=== PATIENT | female | born 1985 | race Caucasian/White ===

== ENCOUNTER → 2019-11-29 | Outpatient (CLI) | payer MEDICAID, SELFPAY | PROVIDERS: Family Provider Family Medicine; Visit Provider Family Medicine | DX: O24.410 Gestational diabetes mellitus in pregnancy, diet controlled (principal); O36.63X0 Maternal care for excessive fetal growth, third trimester, not applicable or unspecified; Z3A.39 39 weeks gestation of pregnancy | CPT/HCPCS: 76815 ==

== ENCOUNTER 2019-12-01 01:39 | Outpatient (CLI) | payer MEDICAID, SELFPAY ==
[2019-12-01 01:40] VITALS: BMI 53.0
[2019-12-01 02:15] VITALS: BP 158/90; PULSE 92; RESP 20; TEMP 36.8
[2019-12-01 03:00] VITALS: BP 146/90; PULSE 90; RESP 18; TEMP 36.7
== END 2019-12-01 03:07 | disposition home or self-care (01) ==
LOC: OPOB 02:09 → OBGYN 03:00 → OPOB 12-11 14:08
PROVIDERS: Family Provider Family Medicine; PCP Family Medicine; Visit Provider Family Medicine
DX: O26.899 Other specified pregnancy related conditions, unspecified trimester (principal); Z3A.00 Weeks of gestation of pregnancy not specified; R10.9 Unspecified abdominal pain
CPT/HCPCS: 59025; 99211

== ENCOUNTER 2019-12-02 12:48 | Inpatient (IN) | payer MEDICAID, SELFPAY ==
[2019-12-02] VITALS (8 sets, daily range): BP systolic 148–170; BP diastolic 73–80; PULSE 63; RESP 18–20; TEMP 36.5–37.1; BMI 53.5
--- NOTE | 2019-12-02 13:06 | US_ITS ---
WS: [id number] ULTRASOUND OB LIMITED TECHNIQUE: Limited ultrasound examination of the fetus. CLINICAL INFORMATION: Gest HTN COMPARISON: FINDINGS: Suboptimal examination due to body habitus Single interuterine gestation. presentation is vertex Placental location is anterior. Placenta grade: 1 heart rate 157 BPM. Normal OANH 4.7 cm Gestational age 37 weeks 3 days. Estimated delivery December 20, 2019 Biophysical profile 8 out of 8. breathin movement: 2 tone: 2 Amniotic fluid: 2 IMPRESSION Normal biophysical profile 8 out of [address] Villalta by technologist at time of exam
[2019-12-02] MEDS: miSOPROStol 100 mcg tablet 25 MCG VAGINAL (15:13)
[2019-12-02 16:12] LABS: Basophils % 0.3 %; Eosinophils % 0.3 %; Hematocrit 35.2 % (37.0-47.0); Hemoglobin 10.9 g/dL (11.5-15.3); Lymphocytes # 1.6 10^3/uL (0.8-4.8); Lymphocytes % 21.1 %; Mean Corpuscular Hemoglobin 27.3 pg (28.0-34.0); Mean Platelet Volume 12.1 fL (7.4-10.4); Monocytes # 0.4 10^3/uL (0.2-0.9); Monocytes % 5.5 %; Neutrophils # 5.6 10^3/uL (1.8-7.7); Neutrophils % 72.3 %; Nucleated Red Blood Cells % 0 %; Platelet Count 221 10^3/cmm (130-400); Red Cell Distribution Width 13.2 % (12.1-15.1); White Blood Count 7.7 10^3/uL (4.0-10.0)
[2019-12-02] MEDS: oxytocin 30 UNIT/500 ML BAG IV (22:00)
[2019-12-02] MEDS: lactated ringers 1,000 ML 125 ML IV (22:00)
[2019-12-03] VITALS (20 sets, daily range): BP systolic 134–154; BP diastolic 68–80; RESP 18–20; TEMP 36.6–37.7
[2019-12-03] MEDS: hyDRALAzine 10 mg Tablet PO ×2 (00:07→04:25)
[2019-12-03] MEDS: fentaNYL 50 mcg/mL INJ 2mL IV ×2 (02:16→05:09)
[2019-12-03] MEDS: lactated ringers 1,000 ML 125 ML IV ×3 (05:55→16:31)
[2019-12-03] MEDS: lactated ringers 1,000 ML 999 ML IV (09:15)
--- NOTE | 2019-12-03 10:20 | ANES.PREANES ---
Pre-Anesthetic Assessment Pre-Anesthetic Assessment: Height/Weight: Height 1.73 m Weight 159.665 kg Temp Pulse Resp BP 98.0 F 63 20 H 156/73 12/03/19 07:15 12/02/19 16:58 12/03/19 05:30 12/02/19 16:58 Exam: Pre-Anes Outpt Exam: alert, oriented x 3, clear to auscultation bilaterally and regular rate & rhythm Airway: Submandibular: WNL Cervical ROM: WNL MP: 2 Dentition: Full Additional comments: nose ring Pulmonary: Pulmonary: None reported CV/HEM: CV/HEM: HTN (PIH) : : None reported Hepatic: Hepatic: None reported GI: GI: GERD Metabolic: Metabolic: Morbid obesity Musc/skel: Musc/skel: Lower Back Pain (L5-S1 diskectomy) Anesthetic Plan: ASA status: II Anesthesia: Anesthesia Evaluation Meds/Allergies Current Medications: Current Medications Generic Name Dose Route Start Last Admin Trade Name Freq PRN Reason Stop Dose Admin Docusate Sodium 100 mg 12/03/19 09:00 12/03/19 09:19 Colace PO Not Given DAILY JO-ANN Fentanyl 25 - 100 mcg 12/02/19 22:38 12/03/19 05:09 Sublimaze IV 50 mcg Q1H PRN Administration SEVERE PAIN Lactated Ringer's 1,000 mls @ 999 m ls/hr 12/02/19 14:38 12/03/19 09:15 Lactated Ringers IV 999 mls/hr .Q1H1M PRN Administration BLEEDING Oxytocin 30 unit in 500 ml s @ 0 mls/hr 12/02/19 21:45 12/03/19 09:31 Pitocin IV 10 mls/hr .Q0M JO-ANN Titration Protocol Per Protocol Lactated Ringer's 1,000 mls @ 125 m ls/hr 12/02/19 21:45 12/03/19 10:09 Lactated Ringers IV 125 mls/hr .Q8H JO-ANN Administration Ropivacaine 200 mg in 100 mls @ 13 mls/hr 12/03/19 09:45 12/03/19 09:58 Naropin Premix EPIDURAL 13 mls/hr .Q7H42M JO-ANN Administration Pantoprazole Sodiu m 40 mg 12/03/19 09:00 12/03/19 09:19 Protonix PO Not Given DAILY JO-ANN PFSH Anesthesia PFSH: Family History Other Diabetes Hypertension Social History Smoking and tobacco status: never smoked Second hand smoke exposure: No Smoking risk assessment/counseling performed?: No Alcohol intake: unknown Desire information about alcohol rehabilitation?: No Counseling given: No Adopted: No Caregiver/support person: Yes Lives independently: Yes Household members: spouse, significant other and family Housing: House Marital status: Single Female Reproductive History: : 2 Data Anesthesia Labs: Other Labs: Laboratory Results - last 48 hr 12/02/19 15:55 WBC 7.7 RBC 4.00 L Hgb 10.9 L Hct 35.2 L MCV 88.0 MCH 27.3 L MCHC 31.0 RDW 13.2 Plt Count 221 MPV 12.1 H Neut % (Auto) 72.3 Lymph % (Auto) 21.1 [place] % (Auto) 5.5 Eos % (Auto) 0.3 Baso % (Auto) 0.3 Neut # (Auto) 5.6 Lymph # (Auto) 1.6 [place] # (Auto) 0.4 Eos # (Auto) 0.0 Baso # (Auto) 0.0 Nucleated RBC % (a uto) 0 Nucleated RBCs # 0.0 Cardiac Studies: No Data to Display
--- NOTE | 2019-12-03 10:25 | ANES.PROC ---
Anesthesia Procedures Procedure/Date: 12/03/19 Epidural: Time Out Performed: Yes Consents Signed: Procedure Consent Consent: risks and benefits reviewed and patient agrees to proceed Lumbar Level: L3-L4 Epidural position: sitting Epidural procedure: sterile prep of area, 1% lidocaine to numb the area, 18 g needle, negative for paresthesia passed, neg for paresthesia, test dose given, 1.5% xylocaine 1:200k epi (5mL), placed PCEA, no systemic response, sterile dressing applied, L.U.D. no apparent complications and 0.2% Ropiavacaine @ mls/hr (13)
--- NOTE | 2019-12-03 10:43 | P.HP_ITS ---
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 Her GABRIELLE is 12/23/19 by 7 weeks u/s and LMP. Present Details : 2 Para: 0 Labs Rubella: Immune RPR: Negative GBS: Negative Review of Systems Const: Denies: fever or change in appetite Eyes: Denies: change in vision ENMT: Denies: throat pain Card: Denies: chest pain or irregular heart rhythm Resp: Denies: shortness of breath or productive cough GI: Denies: abdominal pain : Denies: flank pain, vaginal bleeding or vaginal discharge Skin/Breast: Denies: rash Neuro: Denies: headache Endo: Denies: excessive thirst Bharat/Lymph: Denies: easy bruising Medications/Allergies Allergies Allergy/AdvReac Type Severity Reaction Status Date / Time codeine AdvReac ADR-Itching Verified 12/01/19 02:45 [facility] 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 Statuses (acute, chronic, etc) shown below reflect problem list status as previously entered and may not be historically accurate Medical History (Updated 12/03/19 @ 11:00 by Halima Villalta MD) Chronic hypertension affecting (Acute) Gestational diabetes mellitus, diet-controlled (Acute) Intrauterine (Acute) Morbid obesity (Acute) Family History Other Diabetes Hypertension Social History Smoking and tobacco status: never smoked Second hand smoke exposure: No Smoking risk assessment/counseling performed?: No Alcohol intake: unknown Desire information about alcohol rehabilitation?: No Counseling given: No Adopted: No Caregiver/support person: Yes Lives independently: Yes Household members: spouse, significant other and family Housing: House Marital status: Single Care Comments: G2, P0 at 37 weeks gestation with an GABRIELLE of 12/23/2019 Chronic hypertension, untreated, noted at 15-week visit, baseline 24-hour urine protein 204 Gestational diabetes mellitus, diet controlled The patient began twice weekly NSTs at approximately 32 weeks gestation. She had once monthly growth ultrasounds that were consistently with estimated weight greater than the 75th percentile. The patient's chronic hypertension did not require treatment until approximately 36 weeks gestation. She was started on Procardia 30 mg XL and then increased to 60 mg XL. When her blood pressures began increasing she had repeat PIH labs and 24-hour urines less than 300. At 37 weeks gestation repeat ultrasound showed an OANH of 4.7, blood pressures were consistently 150s to 170s, so decision was made to proceed with induction. Vitals/I&O/Wt Last Vital Signs Temp 98.0 F 12/03/19 07:15 Pulse 63 12/02/19 16:58 Resp 20 H 12/03/19 05:30 BP 156/73 12/02/19 16:58 12/02/19 12/03/19 12/03/19 22:59 06:59 14:59 Intake Total 0.5 / 0.5 1002.083 / 3905.906 8685.15 / 1055.15 Balance 0.5 / 0.5 1002.083 / 1300.997 4445.15 / 1055.15 Weight last 48 hrs Weight 159.665 kg Weight 159.665 kg Physical Exam Const: COMMON NORMALS: no apparent distress and oriented x3 GENERAL APPEARANCE: cooperative and comfortable Resp: COMMON NORMALS: normal respiratory effort, no use of accessory muscles and clear to auscultation bilaterally AUSCULTATION: clear to auscultation bilaterally Cardio: COMMON NORMALS: regular rate and regular rhythm RATE: regular rate RHYTHM: regular rhythm GI: COMMON NORMALS: soft to palpation and non-tender (Gravid with fundal height 45) PALPATION: Yes soft Extremity: COMMON NORMALS: normal to inspection Neuro: COMMON NORMALS: oriented x3, moves all extremities and gait normal Skin: COMMON NORMALS: no rashes or lesions noted GENERAL SKIN EXAM: no rashes or lesions noted A&P Assessment and plan (1) Intrauterine : expectant management Status: Acute Code(s): Z34.90 - Encounter for supervision of normal , unspecified, unspecified trimester (2) Oligohydramnios antepartum: induction of labor Status: Acute Code(s): O41.00X0 - Oligohydramnios, unspecified trimester, not applicable or unspecified (3) Gestational diabetes mellitus, diet-controlled: Status: Acute Code(s): O24.410 - Gestational diabetes mellitus in , diet controlled (4) Chronic hypertension affecting : worsening along with oligohydramnios, so will proceed with induction of labor. Hypertensive protocol. 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
--- NOTE | 2019-12-03 14:09 | PC.NURSE ---
pain is in her tailbone area.
--- NOTE | 2019-12-03 16:11 | PC.NURSE ---
PT WAS ASLEEP AND SNORING DID NOT WAKE HER UP.
--- NOTE | 2019-12-03 22:44 | PC.NURSE ---
BP taken by Narciso CARDENAS
[2019-12-04] VITALS (26 sets, daily range): BP systolic 128–173; BP diastolic 62–92; PULSE 82–113; RESP 16–18; TEMP 36.5–37.8; O2SAT 92–99
[2019-12-04] MEDS: lactated ringers 1,000 ML 125 ML IV (00:56)
[2019-12-04] MEDS: oxytocin 30 UNIT/500 ML BAG IV (03:56)
[2019-12-04] MEDS: lactated ringers 1,000 ML 999 ML IV (05:50)
[2019-12-04] MEDS: famotidine 20 mg/2 mL INJ IVP (06:10)
[2019-12-04] MEDS: citric acid-sodium citrate 30 mL UDC PO (06:10)
[2019-12-04] MEDS: metoclopramide 5 mg/mL SDV 2 mL 10 MG IVP (06:11)
--- NOTE | 2019-12-04 06:22 | P.PN_ITS ---
Pre-Anesthetic Assessment Pre-Anesthetic Assessment: Height/Weight: Height 1.73 m Weight 159.665 kg Temp Pulse Resp BP 99.2 F 63 20 H 145/80 12/04/19 04:00 12/02/19 16:58 12/03/19 18:01 12/03/19 22:40 Exam: Pre-Anes Outpt Exam: alert, oriented x 3, clear to auscultation bilaterally and regular rate & rhythm Airway: Submandibular: WNL Cervical ROM: WNL MP: 2 Dentition: Full History/ROS: No significant history except as noted Pulmonary: Pulmonary: None reported Metabolic: Metabolic: DM and Morbid obesity Anesthetic Plan: ASA status: III Other: epidural Risk of > 500 ml blood loss (7ml/kg in children): Yes, adequate IV access and fluids planned Meds/Allergies Current Medications: Current Medications Generic Name Dose Route Start Last Admin Trade Name Freq PRN Reason Stop Dose Admin Docusate Sodium 100 mg 12/03/19 09:00 12/03/19 09:19 Colace PO Not Given DAILY JO-ANN Fentanyl 25 - 100 mcg 12/02/19 22:38 12/03/19 05:09 Sublimaze IV 50 mcg Q1H PRN Administration SEVERE PAIN Lactated Ringer's 1,000 mls @ 999 m ls/hr 12/02/19 14:38 12/03/19 10:09 Lactated Ringers IV Infused .Q1H1M PRN Infusion BLEEDING Lactated Ringer's 1,000 mls @ 125 m ls/hr 12/02/19 21:45 12/04/19 00:56 Lactated Ringers IV 125 mls/hr .Q8H JO-ANN Administration Ropivacaine 200 mg in 100 mls @ 13 mls/hr 12/03/19 09:45 12/03/19 23:31 Naropin Premix EPIDURAL 13 mls/hr .Q7H42M JO-ANN Administration Lactated Ringer's 1,000 mls @ 999 m ls/hr 12/04/19 05:29 12/04/19 05:50 Lactated Ringers IV 12/04/19 06:29 999 mls/hr .Q1H1M ONE Administration Pantoprazole Sodiu m 40 mg 12/03/19 09:00 12/03/19 09:19 Protonix PO Not Given DAILY JO-ANN PFSH Anesthesia PFSH: Medical History (Updated 12/03/19 @ 11:00 by Halima Villalta MD) Chronic hypertension affecting (Acute) Gestational diabetes mellitus, diet-controlled (Acute) Intrauterine (Acute) Morbid obesity (Acute) Family History Other Diabetes Hypertension Social History Smoking and tobacco status: never smoked Second hand smoke exposure: No Smoking risk assessment/counseling performed?: No Alcohol intake: unknown Desire information about alcohol rehabilitation?: No Counseling given: No Adopted: No Caregiver/support person: Yes Lives independently: Yes Household members: spouse, significant other and family Housing: House Marital status: Single Female Reproductive History: : 2 Data Anesthesia Labs: Other Labs: Laboratory Results - last 48 hr 12/02/19 15:55 WBC 7.7 RBC 4.00 L Hgb 10.9 L Hct 35.2 L MCV 88.0 MCH 27.3 L MCHC 31.0 RDW 13.2 Plt Count 221 MPV 12.1 H Neut % (Auto) 72.3 Lymph % (Auto) 21.1 [place] % (Auto) 5.5 Eos % (Auto) 0.3 Baso % (Auto) 0.3 Neut # (Auto) 5.6 Lymph # (Auto) 1.6 [place] # (Auto) 0.4 Eos # (Auto) 0.0 Baso # (Auto) 0.0 Nucleated RBC % (a uto) 0 Nucleated RBCs # 0.0 Cardiac Studies: No Data to Display
--- NOTE | 2019-12-04 08:19 | PM.OP ---
Operative Report Post-Operative Note: Date of procedure: 12/04/19 Operative Report: Brief History: This is a 34-year-old G2, P0 at 37 weeks 1 day gestation undergoing induction for oligohydramnios, worsening chronic hypertension, and gestational diabetes mellitus. Her labor stalled out at 8 to 9 cm completely effaced and -2 station. On maximum dose of Pitocin she was not making any cervical change nor descent. Around the same time the heart tones began developing late decelerations so decision was made to proceed with section Procedure: Procedure: Primary low transverse section Surgeon: Halima Villalta MD Diagnoses: IUP at 37 weeks 1 day gestation, failure to progress, nonreassuring heart tones Anesthesia: Epidural Fluids: 1800 mL Urine: 150 mL EBL: 700 mL Complications: None After informed consent patient was taken to the OR where adequate epidural anesthesia was verified. She was prepped and draped in normal sterile fashion in dorsal supine position with a left lateral tilt. A Pfannenstiel skin incision was made and carried through to the underlying layer of fascia sharply. There were several large bleeders that were coagulated using the Bovie. The fascial incision was then extended laterally using the Mayos. The fascia was grasped with Jorden clamps and the underlying rectus muscles were dissected off taking care to avoid injury to the underlying tissue. The peritoneum was then entered bluntly using a hemostat. An Florentino retractor was placed for better visualization of the operative field. The vesicouterine peritoneum was then identified and entered sharply using the Metzenbaums. The bladder flap was then created digitally. Uterine incision was made in a transverse fashion in the lower uterine segment. Amniotic rupture of membranes was performed using an Allis clamp. The 's head was delivered atraumatically and the rest of the infant was delivered immediately with bulb suction of the mouth and nares after delivery. The cord was clamped and cut. The infant was handed to the waiting pediatric nurse. The placenta was delivered using fundal pressure. The uterus was then exteriorized from the abdomen and a dry sponge was used to clear the uterus of clots and debris. Uterine incision was repaired using 0 chromic in a running locked fashion. There was a right inferior extension that was also repaired using 0 chromic in a running locked fashion. The uterus was then returned to the abdomen and a second layer of the same suture was then used in an imbricating manner. Excellent hemostasis was obtained. Irrigation was used to clear the gutters of clots and debris. The peritoneum was then reapproximated using 4-0 Vicryl in a running fashion. There was lots of obstructing omentum that was held out of the way using a lap. Before the peritoneum was completely close the lap was then removed. The peritoneum was then completely closed in a running fashion. The subfascial tissue was then inspected for any bleeders which were coagulated using the Bovie. The fascia was then reapproximated using 0 Vicryl in a running fashion, starting at both corners and meeting at the midline. The subcutaneous tissue was then irrigated and any small bleeders were coagulated using the Bovie. The subcutaneous tissue was reapproximated using 4-0 Vicryl in a running fashion. The skin was then reapproximated using 4-0 Vicryl in a running fashion on a Christian needle. Steri-Strips and a pressure bandage were applied patient went to recovery in stable condition Sponge instrument and needle counts were correct Coding Level of Care Code Acute Cyber Defense Incident Responder for Donna Melendez
--- NOTE | 2019-12-04 11:49 | PC.NURSE ---
Vital Signs Pulse reading from pulse oximeter located on index finger of left hand.
--- NOTE | 2019-12-04 11:51 | PC.NURSE ---
Vital Signs Pulse reading from pulse oximeter located on index finger of left hand
--- NOTE | 2019-12-04 11:54 | PC.NURSE ---
Vital Signs Pulse reading from pulse oximeter located on the great toe of the left foot.
--- NOTE | 2019-12-04 11:58 | PC.NURSE ---
Vital Signs The pulse reading is from the pulse oximeter located on the great toe of the left foot.
--- NOTE | 2019-12-04 12:24 | PC.NURSE ---
Epidural catheter removed intact by Yobani Castillo CRNA
[2019-12-04] MEDS: ketorolac 30 mg/mL INJ IVP ×2 (13:42→20:41)
[2019-12-04] MEDS: dextrose 5%-lactated ringers 1,000 ML 125 ML IV ×2 (16:27→23:48)
[2019-12-04] MEDS: docusate sodium 100 mg Capsule PO (18:03)
[2019-12-04 20:20] LABS: Mean Corpuscular HGB Conc 32.1 g/dL (30.0-36.0); Mean Corpuscular Hemoglobin 26.8 pg (28.0-34.0); Mean Corpuscular Volume 83.3 fL (81-99); Mean Platelet Volume 11.1 fL (7.4-10.4); Platelet Count 232 10^3/cmm (130-400); Red Blood Count 3.36 10^6/uL (4.1-5.3); Red Cell Distribution Width 13.6 % (12.1-15.1)
[2019-12-04] MEDS: diphenhydrAMINE 50 mg/mL SDV 1mL 25 MG IV (22:40)
[2019-12-05] MEDS: ketorolac 30 mg/mL INJ IVP (02:58)
[2019-12-05 03:00] VITALS: BP 154/78; PULSE 92; RESP 16; TEMP 36.8; O2SAT 96
[2019-12-05] MEDS: HYDROcodone-acetaminophen 5-325 mg Tablet PO ×3 (08:06→16:32)
[2019-12-05] MEDS: diphenhydrAMINE 25 mg Capsule PO (08:06)
[2019-12-05] MEDS: docusate sodium 100 mg Capsule PO ×2 (08:09→18:35)
[2019-12-05] MEDS: ferrous sulfate EC 325 mg Tablet PO ×2 (08:10→18:35)
[2019-12-05] MEDS: prenatal vitamin Capsule 1 CAP PO (08:10)
[2019-12-05] MEDS: acetaminophen 325 mg Tablet 650 MG PO (10:25)
[2019-12-05 10:30] VITALS: BP 136/78; PULSE 86; RESP 18; TEMP 36.6; O2SAT 96
--- NOTE | 2019-12-05 10:46 | PC.NURSE ---
Vital Signs Pulse reading from pulse oximeter located on right index finger.
[2019-12-05 16:08] VITALS: BP 150/78; PULSE 96; RESP 18; TEMP 36.6; O2SAT 97
--- NOTE | 2019-12-05 17:38 | P.PN_ITS ---
Subjective Subjective: Interval history: Pain controlled with medication, ambulating within the room, passing flatus and tolerating a regular diet Vitals/I&O/Wt Last Vital Signs Temp 97.8 F 12/05/19 16:08 Pulse 96 12/05/19 16:08 Resp 18 12/05/19 16:08 BP 150/78 12/05/19 16:08 Pulse Ox 97 12/05/19 16:08 12/05/19 12/05/19 12/05/19 06:59 14:59 22:59 Intake Total 1990.25 / 6859.05 Output Total 418 / 1843 1000 / 1000 Balance 1573.25 / 5016.05 -1000 / -1000 Physical Exam Const: COMMON NORMALS: no apparent distress and oriented x3 GENERAL APPEARANCE: cooperative and comfortable Resp: COMMON NORMALS: normal respiratory effort, no use of accessory muscles and clear to auscultation bilaterally AUSCULTATION: clear to auscultation bi laterally Cardio: COMMON NORMALS: regular rate and regular rhythm RATE: regular rate RHYTHM: regular rhythm GI: COMMON NORMALS: soft to palpation PALPATION: Yes soft OTHER: Incision clean dry and intact Extremity: COMMON NORMALS: normal to inspection; negative for no pedal edema (3+ edema) Neuro: COMMON NORMALS: oriented x3, moves all extremities and gait normal Skin: COMMON NORMALS: no rashes or lesions noted GENERAL SKIN EXAM: no rashes or lesions noted A&P Assessment and plan (1) Intrauterine : delivered Status: Acute Code(s): Z34.90 - Encounter for supervision of normal , unspecified, unspecified trimester (2) Oligohydramnios antepartum: Status: Acute Code(s): O41.00X0 - Oligohydramnios, unspecified trimester, not applicable or unspecified (3) Gestational diabetes mellitus, diet-controlled: Status: Acute Code(s): O24.410 - Gestational diabetes mellitus in , diet controlled (4) Chronic hypertension affecting : Blood pressure is mildly elevated without any medication, continue to monitor Status: Acute Code(s): O10.919 - Unspecified pre-existing hypertension complicating , unspecified trimester (5) Morbid obesity: Status: Acute Code(s): E66.01 - Morbid (severe) obesity due to excess calories (6) delivery due to maternal disorder: Postop day #1 Doing well, continue routine postoperative care Status: Acute Code(s): O99.89 - Other specified diseases and conditions complicating , childbirth and the puerperium Attestations Medical Necessity Statement*: Routine and postoperative care Coding Level of Care Code Acute Global Risk Management Director 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
[2019-12-05 22:00] VITALS: BP 149/77; PULSE 90; RESP 18; TEMP 36.4
[2019-12-06] MEDS: HYDROcodone-acetaminophen 5-325 mg Tablet PO ×4 (04:45→21:08)
[2019-12-06 04:55] VITALS: BP 146/85; PULSE 87; RESP 17; TEMP 36.4; O2SAT 97
[2019-12-06] MEDS: prenatal vitamin Capsule 1 CAP PO (08:10)
[2019-12-06] MEDS: ferrous sulfate EC 325 mg Tablet PO ×2 (08:12→18:20)
[2019-12-06] MEDS: docusate sodium 100 mg Capsule PO ×2 (08:12→18:20)
[2019-12-06 11:45] VITALS: BP 141/84; PULSE 86; RESP 18; TEMP 36.4; O2SAT 99
--- NOTE | 2019-12-06 12:54 | PM.PN ---
Subjective Subjective: Interval history: Pain controlled with medication. Ambulating, no complaints Vitals/I&O/Wt Last Vital Signs Temp 97.6 F 12/06/19 04:55 Pulse 87 12/06/19 04:55 Resp 17 12/06/19 04:55 BP 146/85 12/06/19 04:55 Pulse Ox 97 12/06/19 04:55 12/05/19 12/06/19 12/06/19 22:59 06:59 14:59 Output Total 550 / 1550 600 / 2150 Balance -550 / -1550 -600 / -2150 Physical Exam Const: COMMON NORMALS: no apparent distress and oriented x3 GENERAL APPEARANCE: cooperative and comfortable Resp: COMMON NORMALS: normal respiratory effort, no use of accessory muscles and clear to auscultation bilaterally AUSCULTATION: clear to auscultation bilaterally Cardio: COMMON NORMALS: regular rate and regular rhythm RATE: regular rate RHYTHM: regular rhythm GI: COMMON NORMALS: soft to palpation PALPATION: Yes soft OTHER: Incision clean dry and intact Extremity: COMMON NORMALS: normal to inspection; negative for no pedal edema (3+ edema) Neuro: COMMON NORMALS: oriented x3, moves all extremities and gait normal Skin: COMMON NORMALS: no rashes or lesions noted GENERAL SKIN EXAM: no rashes or lesions noted A&P Assessment and plan (1) Intrauterine : delivered Status: Acute Code(s): Z34.90 - Encounter for supervision of normal , unspecified, unspecified trimester (2) Oligohydramnios antepartum: Status: Acute Code(s): O41.00X0 - Oligohydramnios, unspecified trimester, not applicable or unspecified (3) Gestational diabetes mellitus, diet-controlled: Status: Acute Code(s): O24.410 - Gestational diabetes mellitus in , diet controlled (4) Chronic hypertension affecting : Blood pressure is mildly elevated without any medication, continue to monitor Status: Acute Code(s): O10.919 - Unspecified pre-existing hypertension complicating , unspecified trimester (5) Morbid obesity: Status: Acute Code(s): E66.01 - Morbid (severe) obesity due to excess calories (6) delivery due to maternal disorder: Postop day #2 Doing well, continue routine postoperative care Status: Acute Code(s): O99.89 - Other specified diseases and conditions complicating , childbirth and the puerperium Attestations Medical Necessity Statement*: Routine postoperative care Coding Level of Care Code Acute Urology Physician Assistant 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
[2019-12-06 16:10] VITALS: BP 153/84; PULSE 96; RESP 18; TEMP 36.4; O2SAT 99
[2019-12-06 22:22] VITALS: BP 131/78; PULSE 92; RESP 17; TEMP 36.5; O2SAT 99
[2019-12-07 03:45] VITALS: BP 152/82; PULSE 77; RESP 18; TEMP 36.6; O2SAT 98
[2019-12-07] MEDS: HYDROcodone-acetaminophen 5-325 mg Tablet PO ×2 (07:31→15:13)
[2019-12-07] MEDS: ferrous sulfate EC 325 mg Tablet PO (07:32)
[2019-12-07] MEDS: prenatal vitamin Capsule 1 CAP PO (07:33)
--- NOTE | 2019-12-07 08:50 | PC.NURSE ---
BABY TO THE BREAST, SHOWS INTEREST IN FEEDING BUT SUCKING IS SURFACE SUCKING AND NOT MAINTAINING LATCH WELL MOM REPORTS BABY DID BETTER BEFORE THE BOTTLE SUPPLEMENTING. OFFERED A NIPPLE SHIELD AND MOM WILLING TO TRY IT. WITH SOME TOOTSWEET TO ENTICE BABY, HE DID START SUCKING FAIRLY RHYTHMICALLY. MOM REPORTED NIPPLE DISCOMFORT. NOTED SOME POSITION CHANGE HELPED BUT NEVER TOOK THE PAIN AWAY. NOTED BLANCHED CREASED NIPPLE WHEN BABY CAME OFF OF THE SHIELD.POSSIBLY A LARGER SHIELD WILL BE BETTER FOR HER. THE NIPPLE ON THIS SIDE IS THICK AND NOT VERY PLIABLE. MOM REPORTS THE OTHER SIDE IS MORE PLIABLE AND WILL WORK ON THAT WITH NEXT FEEDING. DISCUSSED EXPRESSING AND PUMPING. ALSO JUST BREAST MASSAGE TO STIMULATE THE BREAST AND HELP INCREASE MILK OUTPUT. PROVIDED LITERATURE AND CONTACT INFORMATION
[2019-12-07] MEDS: docusate sodium 100 mg Capsule PO (08:53)
--- NOTE | 2019-12-07 12:18 | PM.OBGYDC ---
Discharge Providers HOME THEATER EXPERIENCE EXPERT Date of Admission: 12/02/19 12:48 Date of Discharge: 12/07/19 Attending Provider at Admission: Halima Villalta MD Attending Provider at Discharge: Halima Villalta MD Primary Care Provider: Halima Villalta MD Diagnoses at Discharge Discharge Diagnosis (1) Intrauterine : Status: Acute (2) Oligohydramnios antepartum: Status: Acute (3) Gestational diabetes mellitus, diet-controlled: Status: Acute (4) Chronic hypertension affecting : Status: Acute (5) Morbid obesity: Status: Acute (6) delivery due to maternal disorder: Status: Acute Reason for Visit Reason for Visit: Reason For Visit: NST Hospital Course Hospital Course: The patient was admitted for induction secondary to oligohydramnios, worsening chronic hypertension, and gestational diabetes mellitus. Her labor failed to progress and she ended up with a primary low transverse section. Post operatively she did well ambulating, tolerating a regular diet, and had good pain control with oral medications. She was kept for 3 days with the due to feeding issues and low blood sugars with the . Information Peripartum Data: Delivery Method: Section Physical Exam Const: COMMON NORMALS: no apparent distress and oriented x3 GENERAL APPEARANCE: cooperative and comfortable Resp: COMMON NORMALS: normal respiratory effort, no use of accessory muscles and clear to auscultation bilaterally AUSCULTATION: clear to auscultation bilaterally Cardio: COMMON NORMALS: regular rate and regular rhythm RATE: regular rate RHYTHM: regular rhythm GI: COMMON NORMALS: soft to palpation PALPATION: Yes soft OTHER: Incision clean and dry. Small area about 2cm x 0.5cm minimally dehisced Extremity: COMMON NORMALS: normal to inspection; negative for no pedal edema (3+ edema) Neuro: COMMON NORMALS: oriented x3, moves all extremities and gait normal Skin: COMMON NORMALS: no rashes or lesions noted GENERAL SKIN EXAM: no rashes or lesions noted Discharge Data Data Completed and Pending: Completed Studies During Hospitalization Category Date Time Status US OB BPP w o NST 47984 Stat Ultrasound 12/02/19 13:06 Completed Vitals: Last Vital Signs Temp 97.8 F 12/07/19 03:45 Pulse 77 12/07/19 03:45 Resp 18 12/07/19 03:45 BP 152/82 12/07/19 03:45 Pulse Ox 98 12/07/19 03:45 Discharge Plan Discharge Patient Disposition: Home, Self-Care Condition: Stable Prescriptions: New hydrocodone-acetaminophen 5-325 mg Tablet 1 - 2 tab PO Q4H PRN (Reason: Moderate To Severe Pain) Qty: 20 RF: 0 docusate sodium 100 mg Capsule 100 mg PO BID Qty: 60 RF: 0 Continued omeprazole 20 mg Tablet,Delayed Release (Dr/Ec) 20 mg PO DAILY RF: 0 Discontinued nifedipine [Procardia] 10 mg Capsule 60 mg PO DAILY RF: 0 docusate sodium [Colace] 100 mg Capsule 100 mg PO DAILY RF: 0 Referrals: Halima Villalta MD [Primary Care Provider] - (next week) Discharge Diet: Usual diet Discharge Activity: Limit activity as instructed Activity Restrictions/Additional Instructions: no lifting > 10 lbs no driving until off the opiod pain medication and able to perform all functions Discharge Attestations HOME THEATER EXPERIENCE EXPERT Time Spent in Discharge Care*: less than 30 min Coding Level of Care Code Acute 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
== END 2019-12-07 16:10 | disposition home or self-care (01) | DRG 788 ==
LOC: OPOB 12:55 → OBGYN 17:04
PROVIDERS: Admitting Provider Family Medicine; Family Provider Family Medicine; PCP Family Medicine; Visit Provider Family Medicine
PROC: 10D00Z1 Extraction of Products of Conception, Low, Open Approach (ICD-10-PCS; CPT 59514; principal; 2019-12-04 05:25)
DX: O24.420 Gestational diabetes mellitus in childbirth, diet controlled (principal); Z3A.37 37 weeks gestation of pregnancy; Z37.0 Single live birth; O16.4 Unspecified maternal hypertension, complicating childbirth; O99.214 Obesity complicating childbirth; O41.00X0 Oligohydramnios, unspecified trimester, not applicable or unspecified; O61.0 Failed medical induction of labor; O76 Abnormality in fetal heart rate and rhythm complicating labor and delivery
CPT/HCPCS: 36415; 51702; 59025; 59409; 76819; 85025; 85027; 96375; 98960; 99221; J0360; J0690; J1200; J1885; J2001; J2274; J2405; J2590; J2765; J2795; J3010; J3490

== ENCOUNTER 2019-12-08 07:43 | Emergency (ER) | payer MEDICAID, SELFPAY ==
[2019-12-08 07:45] VITALS: BP 176/84; PULSE 92; RESP 16; TEMP 36.5; O2SAT 99; BMI 53.1
--- NOTE | 2019-12-08 07:45 | ED_ITS ---
Entered by Rachell Vernon, acting as scribe for Reggie Corado DO Documented by User: ROGER Waldrop 12/08/19 11:09 HPI - Wound/Laceration General: Chief Complaint: Abdominal Pain Stated Complaint: ripped stitches from C section Time Seen by Provider: 12/08/19 07:47 Source: patient Mode of arrival: ambulatory Limitations: no limitations History of Present Illness: HPI narrative: Patient is a 34-year-old female 3 days here for a dehiscence of her section; denies pain; reports drainage Location: abdomen Place: home Patient tetanus UTD: Yes Associated symptoms: Reports no associated symptoms; Denies chills, fever(s), nausea or vomiting Review of Systems Const: Denies: fever or chills GI: Denies: abdominal pain, nausea or vomiting Skin/Breast: Reports: other (Wound dehiscence) PFSH ED PFSH: Statuses (acute, chronic, etc) shown below reflect problem list status as previously entered and may not be historically accurate Medical History (Updated 12/08/19 @ 08:15 by ROGER Waldrop) delivery due to maternal disorder (Acute) Chronic hypertension affecting (Acute) Gestational diabetes mellitus, diet-controlled (Acute) Intrauterine (Acute) Morbid obesity (Acute) Social History Smoking and tobacco status: never smoked Second hand smoke exposure: No Smoking risk assessment/counseling performed?: No Alcohol intake: unknown Desire information about alcohol rehabilitation?: No Counseling given: No Adopted: No Caregiver/support person: Yes Lives independently: Yes Household members: spouse, significant other and family Housing: House Marital status: Single Physical Exam Const: COMMON NORMALS: no apparent distress, oriented x3 and alert GENERAL APPEARANCE: other NUTRITIONAL APPEARANCE: obese morbidly obese GI: OTHER: Patient has an area approximately 5 cm in the center of her section that has dehisced; measures approximately 4 mm wide; serosanguineous drainage noted on dressing; no erythema, foul odor, purulent drainage, or pain noted Neuro: COMMON NORMALS: oriented x3 SENSORIUM/ORIENTATION: Yes alert Course Vital Signs: Vital signs: Vital Signs Temperature 97.7 F 12/08/19 07:45 Pulse Rate 92 12/08/19 07:45 Respiratory Rate 16 12/08/19 07:45 Blood Pressure 176/84 12/08/19 07:45 Pulse Oximetry 99 12/08/19 07:45 MDM - Wound/Laceration MDM Narrative: Medical decision making narrative: Wound will need to heal by secondary intent; given her morbid obesity she needs to keep the area in her pannus clean and dry; recommend she follow-up with Dr. Villalta in a week for reevaluation Discharge Plan Discharge Patient Disposition: Home, Self-Care Clinical Impression: Dehiscence of section wound, Condition: Stable Prescriptions: No Action omeprazole 20 mg Tablet,Delayed Release (Dr/Ec) 20 mg PO DAILY RF: 0 docusate sodium 100 mg Capsule 100 mg PO BID Qty: 60 RF: 0 hydrocodone-acetaminophen 5-325 mg Tablet 1 - 2 tab PO Q4H PRN (Reason: Moderate To Severe Pain) 14 Days Qty: 20 RF: 0 Discharge Orders: Discharge Order (Routine); Ordered 12/08/19 Ordered By: Martha Almeida Referrals: Halima Villalta MD [Primary Care Provider] - Activity Restrictions/Additional Instructions: As instructed please keep the wound clean with warm soapy water. Keep the incision dry by applying dressings or reusable towels. Follow up with Dr. Villalta next week for re-evaluation. Return to ED for any pus like drainage, redness surrounding the incision, increased pain, or foul odor. Discharge Date/Time: 12/08/19 08:17 Coding Level of Care Code ED Beef Grader for Chg Fwd Exam Problem Focused Documented by User: Reggie Corado DO 12/09/19 08:15 HPI - Wound/Laceration General: Chief Complaint: Abdominal Pain Stated Complaint: ripped stitches from C section Time Seen by Provider: 12/08/19 07:47 Source: patient Mode of arrival: ambulatory Limitations: no limitations History of Present Illness: Place: home Context: other (ripped stitches from ) Associated symptoms: Denies chills, fever(s), nausea, syncope or vomiting Review of Systems Const: Denies: fever, chills, body aches, fatigue, malaise or night sweats Eyes: Denies: change in vision or blurry vision ENMT: Denies: throat pain, oral sores/lesions, dental pain, nasal discharge or nasal congestion Card: Denies: chest pain, palpitations, irregular heart rhythm, edema, syncope, shortness of breath on exertion, shortness of breath when lying down or leg pain with exertion Resp: Denies: shortness of breath, productive cough, non-productive cough or wheezing GI: Denies: abdominal pain, nausea, vomiting, vomiting blood, coffee grounds in vomit, difficulty swallowing, heartburn/indigestion, diarrhea, constipation, cramping, blood in stool or black tarry stool : Denies: flank pain, painful urination, urinary frequency, urinary urgency, urinary incontinence or blood in urine Musc: Denies: neck pain, back pain, extremity pain, extremity swelling, joint pain or joint swelling Skin/Breast: Denies: rash, itching or redness Neuro: Denies: headache, numbness in extremities, weakness in extremities, changes in sensation, lack of coordination, difficulty walking, frequent falls, dizziness, vertigo or confusion Psych: Denies: anxiety, depression, loss of interest, visual hallucinations, auditory hallucinations, suicidal ideation or homicidal ideation Endo: Denies: excessive urination, excessive thirst, tired all the time or cold intolerance Bharat/Lymph: Denies: easy bruising, easy bleeding, petechiae, enlarged lymph nodes or tender lymph nodes PFSH ED PFSH: Statuses (acute, chronic, etc) shown below reflect problem list status as previously entered and may not be historically accurate Medical History (Updated 12/08/19 @ 08:15 by ROGER Waldrop) delivery due to maternal disorder (Acute) Chronic hypertension affecting (Acute) Gestational diabetes mellitus, diet-controlled (Acute) Intrauterine (Acute) Morbid obesity (Acute) Social History Smoking and tobacco status: never smoked Second hand smoke exposure: No Smoking risk assessment/counseling performed?: No Alcohol intake: unknown Desire information about alcohol rehabilitation?: No Counseling given: No Adopted: No Caregiver/support person: Yes Lives independently: Yes Household members: spouse, significant other and family Housing: House Marital status: Single Physical Exam Const: COMMON NORMALS: average body habitus, oriented x3 and alert GENERAL APPEARANCE: cooperative, comfortable, well kempt and well developed NUTRITIONAL APPEARANCE: obese ORIENTATION/CONSCIOUSNESS: Yes awake, Yes oriented to person and Yes oriented to place HENMT: COMMON NORMALS: normocephalic, head/scalp atraumatic, EAC's normal, TM's normal bilaterally, external nose normal, moist oral mucous membranes and oropharynx normal HEAD & SCALP: normocephalic and atraumatic NOSE: external nose normal EXTERNAL AUDITORY CANAL: EAC's normal TYMPANIC MEMBRANE: TM's normal bilaterally MOUTH: oral and palatal mucosa normal, lip normal and tongue normal THROAT: posterior oropharynx normal and tonsils normal Eye: COMMON NORMALS: PERRL, EOMs intact bilaterally, conjunctivae normal and no scleral icterus CONJUNCTIVA: Yes conjunctivae normal PUPIL: Yes PERRL Neck/C-Spine: COMMON NORMALS: full ROM, no lymphadenopathy, supple, no meningeal signs and thyroid normal THYROID: thyroid normal and asymmetrical Lymph: LYMPHATIC: no lymphadenopathy noted Resp: COMMON NORMALS: normal respiratory effort, no retractions, no use of accessory muscles and clear to auscultation bilaterally AUSCULTATION: clear to auscultation bilaterally Cardio: COMMON NORMALS: regular rate and regular rhythm RATE: regular rate RHYTHM: regular rhythm HEART SOUNDS: no murmurs GI: COMMON NORMALS: normal to inspection, nondistended, normoactive bowel sounds, soft to palpation and no hepatosplenomegaly PALPATION: Yes soft and Yes no hepatosplenomegaly : COMMON NORMALS: Yes no CVA tenderness BLADDER/KIDNEY EXAM: Yes no CVA tenderness Back/Pelvis: COMMON NORMALS: no CVA tenderness LUMBAR SPINE/LOWER BACK: Yes normal to inspection Extremity: COMMON NORMALS: no clubbing, cyanosis or edema, no calf tenderness and no pedal edema Neuro: COMMON NORMALS: oriented x3 SENSORIUM/ORIENTATION: Yes alert, Yes oriented to person and Yes oriented to place MENINGEAL SIGNS: Yes no meningeal signs Psych: APPEARANCE: Yes well kempt Skin: COMMON NORMALS: no rashes or lesions noted and skin turgor normal GENERAL SKIN EXAM: no rashes or lesions noted and turgor normal Course Vital Signs: Vital signs: Vital Signs Temperature 97.7 F 12/08/19 07:45 Pulse Rate 92 12/08/19 07:45 Respiratory Rate 16 12/08/19 07:45 Blood Pressure 176/84 12/08/19 07:45 Pulse Oximetry 99 12/08/19 07:45 Discharge Plan Discharge Patient Disposition: Home, Self-Care Clinical Impression: Dehiscence of section wound, Condition: Stable Prescriptions: No Action omeprazole 20 mg Tablet,Delayed Release (Dr/Ec) 20 mg PO DAILY RF: 0 docusate sodium 100 mg Capsule 100 mg PO BID Qty: 60 RF: 0 hydrocodone-acetaminophen 5-325 mg Tablet 1 - 2 tab PO Q4H PRN (Reason: Moderate To Severe Pain) 14 Days Qty: 20 RF: 0 Discharge Orders: Discharge Order (Routine); Ordered 12/08/19 Ordered By: Martha Almeida Referrals: Halima Villalta MD [Primary Care Provider] - Activity Restrictions/Additional Instructions: As instructed please keep the wound clean with warm soapy water. Keep the incision dry by applying dressings or reusable towels. Follow up with Dr. Villalta next week for re-evaluation. Return to ED for any pus like drainage, redness surrounding the incision, increased pain, or foul odor. Discharge Date/Time: 12/08/19 08:17 Coding Level of Care Code ED Beef Grader for Chg Fwd Exam Problem Focused The documentation recorded by the Saulo lowry Stephanie Lyn, accurately reflects the service I personally performed and the decisions made by Mickie garcia Curtis L, Dec 08, 2019 07:43
--- NOTE | 2019-12-08 08:00 | PC.NURSE ---
pt oriented to ER room. Pt has open incision post . incision is not reddened. pt reports oozing and drainage from site.
== END 2019-12-08 08:17 | disposition home or self-care (01) ==
PROVIDERS: Emergency Provider Family Medicine; Family Provider Family Medicine; PCP Family Medicine
DX: O90.0 Disruption of cesarean delivery wound (principal)
CPT/HCPCS: 99281

== ENCOUNTER 2019-12-10 13:16 | Outpatient (CLI) | payer MEDICAID, SELFPAY ==
--- NOTE | 2019-12-10 | XR_ITS ---
WS: [id number] CHEST 2 VIEWS HISTORY: DYSPNEA COMPARISON: 09/21/2009 Lungs: Linear and nodule opacification in the central LEFT lung. Mild stranding at the LEFT lung base seen best on the lateral projection is probably atelectasis. RIGHT lung is clear. No pleural effusio n. Normal vasculature. Cardiac size: Normal. Mediastinum/Aorta: Normal mediastinum. Bones: Normal. XR/XR chest 2V* [id number] IMPRESSION: LEFT upper lobe pneumonia.
== END 2019-12-10 13:17 | disposition home or self-care (01) ==
PROVIDERS: Family Provider Family Medicine; PCP Family Medicine; Referring Provider Family Medicine; Visit Provider Nurse Practitioner Family
DX: J18.9 Pneumonia, unspecified organism (principal); R06.00 Dyspnea, unspecified

== ENCOUNTER 2019-12-10 13:50 | Outpatient (REF) | payer MEDICAID, SELFPAY | END 2019-12-10 13:51 | disposition home or self-care (01) | LOC: LAB 13:50 | PROVIDERS: Family Provider Family Medicine; PCP Family Medicine; Visit Provider Nurse Practitioner Family | DX: Z01.89 Encounter for other specified special examinations (principal) | CPT/HCPCS: 85378 ==

== ENCOUNTER → 2019-12-10 14:49 | Day surgery (SDC) | payer MEDICAID, SELFPAY ==
[2019-12-10 15:15] VITALS: BP 203/104; PULSE 80; RESP 20; TEMP 37.3; O2SAT 92
[2019-12-10 15:49] LABS: Hematocrit 24.5 % (37.0-47.0); Hemoglobin 7.5 g/dL (11.5-15.3)
[2019-12-10 16:55] VITALS: BP 220/116; PULSE 72; RESP 20; O2SAT 96
--- NOTE | 2019-12-10 17:21 | SUR.PREOP ---
PT TO OB VIA [facility] WITH ASSISTANCE FROM OB STAFF.
== END ==
PROVIDERS: Family Provider Family Medicine; PCP Family Medicine; Visit Provider Nurse Practitioner Family
DX: D50.0 Iron deficiency anemia secondary to blood loss (chronic) (principal); Z98.890 Other specified postprocedural states
CPT/HCPCS: 36415; 85014; 85018; 86850; 86900

== ENCOUNTER 2019-12-10 17:00 | Outpatient (CLI) | payer MEDICAID, SELFPAY ==
[2019-12-10 17:00] VITALS: BMI 58.1
[2019-12-10] MEDS: hyDRALAzine 10 mg Tablet PO (18:47)
[2019-12-10] MEDS: HYDROcodone-acetaminophen 5-325 mg Tablet 2 TAB PO (18:47)
[2019-12-10 19:20] LABS: Urine Creatinine 230 mg/dL (28-217)
[2019-12-10 19:23] LABS: UPRO/UCREAT Ratio 0.23 mg/mg CR; Urine Protein Random 54 mg/dL
[2019-12-10 19:37] VITALS: BP 143/80; PULSE 77; RESP 17; TEMP 36.7; O2SAT 92
--- NOTE | 2019-12-10 19:52 | PC.NURSE ---
pt came to OB floor with existing IV in Right AC from outpatient surgery. no oozing, or tenderness noted,
== END 2019-12-10 20:10 | disposition home or self-care (01) ==
LOC: OPOB 17:59 → OBGYN 19:42 → OPOB 12-11 14:18
PROVIDERS: Family Provider Family Medicine; PCP Family Medicine; Visit Provider Family Medicine
DX: O16.9 Unspecified maternal hypertension, unspecified trimester (principal); Z3A.00 Weeks of gestation of pregnancy not specified
CPT/HCPCS: 36415; 82570; 84156

== ENCOUNTER 2021-01-06 20:28 | Emergency (ER) | payer OTHER, BC, MEDICAID, SELFPAY ==
--- NOTE | 2021-01-06 20:29 | XRR_ITS ---
PROCEDURE INFORMATION: Exam: XR Left Ankle Exam date and time: 01/06/2021 8:31 PM Age: 35 years old Clinical indication: Injury or trauma; Fall; Blunt trauma; Ankle; Left; Prior surgery; Surgery date: 6+ months; Additional info: Twisted ankle, left TECHNIQUE: Imaging protocol: XR Left ankle. Views: 3 or more views. COMPARISON: CR Foot 3 views, LEFT* [id number] 07/15/2015 5:02 PM FINDINGS: Bones/joints: Normal. Soft tissues: There is edema in the soft tissues surrounding the ankle. XR/XR ankle LT min 3V* [id number] IMPRESSION: There is edema in the soft tissues.
[2021-01-06 20:33] VITALS: BP 189/108; PULSE 80; RESP 18; TEMP 36.6; O2SAT 96; BMI 53.1
[2021-01-06 20:40] VITALS: PULSE 84
[2021-01-06 20:43] VITALS: BP 177/97; PULSE 79; RESP 18; O2SAT 96
--- NOTE | 2021-01-06 21:18 | ED_ITS ---
HPI - Extremity Problem General: Chief complaint: Extremity Injury, Lower Stated complaint: left ankle injury due to fall Time Seen by Provider: 01/06/21 20:29 Source: patient Mode of arrival: ambulatory Limitations: no limitations History of Present Illness: HPI Narrative: Pleasant 35-year-old female patient presents to the emergency room after twisting her ankle while walking down steps. She reports occurred at approximately 7 PM tonight. She denies further injuries or complaints. She reports previous left foot fracture years ago. She denies foot pain. MD Complaint: extremity pain and extremity swelling Pain Consistency: intermittent Location: left and lower extremity Quality: aching and dull Radiation: proximal Relieving factors: immobilization and rest Exacerbating factors: weight bearing and walking Associated symptoms: Reports no associated symptoms; Deny chest pain, fever(s) or rash Review of Systems General: Reports: 10 or more systems reviewed and unremarkable except in HPI and below Const: Denies: fever(s), chills or diaphoresis Eyes: Denies: blurry vision or eye redness ENMT: Denies: throat pain, dental pain or disequilibrium Card: Denies: chest pain, palpitations or irregular heart rhythm Resp: Denies: dyspnea, productive cough, non-productive cough or wheezing GI: Denies: abdominal pain, nausea or vomiting : Denies: difficulty voiding or dysuria Musc: Reports: joint pain and joint swelling; Denies: neck pain or back pain Skin/Breast: Denies: rash or pruritus Neuro: Denies: headache(s), weakness in extremities or behavioral changes Psych: Denies: anxiety or depression Bharat/Lymph: Denies: easy bruising PFSH ED PFSH: Medical History delivery due to maternal disorder Chronic hypertension affecting Gestational diabetes mellitus, diet-controlled Intrauterine Morbid obesity Family History Other Diabetes Hypertension Social History Smoking and tobacco status: never smoked Second hand smoke exposure: No Smoking risk assessment/counseling performed?: No Alcohol intake: unknown Desire information about alcohol rehabilitation?: No Counseling given: No Adopted: No Caregiver/support person: Yes Lives independently: Yes Household members: spouse, significant other and family Housing: House Marital status: Single Female Reproductive History: Date of last menstrual period: 01/01/21 Physical Exam Const: COMMON NORMALS: no acute distress, patient oriented x3, healthy appearing and alert GENERAL APPEARANCE: cooperative, comfortable, well kempt, well developed and well hydrated NUTRITIONAL APPEARANCE: obese ORIENTATION/CONSCIOUSNESS: Yes awake, Yes oriented to person, Yes oriented to place and Yes oriented to time HENMT: COMMON NORMALS: normocephalic, Normal external nose present and moist oral mucous membranes HEAD & SCALP: normocephalic NOSE: Normal external nose present Eye: COMMON NORMALS: Equal, round and reactive pupils present and EOMs intact bilaterally GENERAL EYE: appearance normal, both eyes and all related structures PUPIL: Yes Equal, round and reactive pupils present Neck/C-Spine: COMMON NORMALS: full ROM and no lymphadenopathy GENERAL: Yes normal visual inspection and Yes trachea midline CERVICAL SPINE: Yes cervical ROM normal Lymph: LYMPHATIC: no lymphadenopathy noted Chest: COMMONS NORMALS: normal inspection of the chest and normal palpation of entire chest wall Resp: COMMON NORMALS: normal respiratory effort, No retractions, No use of accessory muscles and clear to auscultation bilaterally EFFORT & INSPECTION: Yes able to speak in complete sentences AUSCULTATION: clear to auscultation bilaterally Cardio: COMMON NORMALS: regular rate, regular rhythm, S1 normal heart sound present, S2 normal heart sound present and Peripheral pulses 2+ throughout RATE: regular rate RHYTHM: regular rhythm HEART SOUNDS: S1 normal heart sound present and S2 normal heart sound present PERIPHERAL PULSES: Peripheral pulses 2+ throughout GI: COMMON NORMALS: Soft to palpation and non-tender INSPECTION: Yes normal to inspection PALPATION: Yes Soft to palpation : COMMON NORMALS: Yes no CVA tenderness BLADDER/KIDNEY EXAM: Yes no CVA tenderness Back/Pelvis: COMMON NORMALS: no CVA tenderness and thoracic and lumbar spine normal to inspection Extremity: COMMON NORMALS: normal to inspection, full ROM and capillary refill normal GENERAL: Yes normal exam except as noted LEFT LOWER EXTREMITY: Yes ankle joint (lateral and posterior tenderness, crepitus noted lateral, slight ecchymosis) Left ankle: Yes palpation, Yes ROM (limited due to pain), Yes neurovascular exam (distally intact), Yes other (Slight ecchymosis noted laterally) and Yes special tests Left ankle special tests: Ankle inversion test: Positive, Ankle eversion test: Positive, Ankle posterior drawer test: Positive and Squeeze test: Positive OTHER: not able to produce pain to the foot, full dorsi flexion/extension to the digits of the left foot noted. Neuro: COMMON NORMALS: patient oriented x3 and no focal motor deficits SENSORIUM/ORIENTATION: Yes alert, Yes oriented to person, Yes oriented to place and Yes oriented to time Psych: COMMON NORMALS: mental status grossly normal, Normal thought process present and cooperative APPEARANCE: Yes well kempt ACTIVITY/MOTOR BEHAVIOR: Yes appropriate eye contact THOUGHT PROCESS: Normal thought process present Skin: COMMON NORMALS: no rashes or lesions noted and turgor normal GENERAL SKIN EXAM: no rashes or lesions noted and turgor normal Course Vital Signs: Vital signs: Vital Signs Temperature 97.9 F 01/06/21 20:33 Pulse Rate 81 01/06/21 21:36 Respiratory Rate 17 01/06/21 21:36 Blood Pressure 162/90 01/06/21 21:36 Pulse Oximetry 97 01/06/21 21:36 MDM - Extremity (Nontraumatic) Imaging Data^: Xray Ortho: Radiologist's impression: [address] [address] XRay Report Signed Patient: Estefany Méndez #: [id number] : 1985Acct#:[id number] Age/Sex: 35 / FADM Date: 01/06/21 Loc: ERRoom/Bed: Attending Dr: Ordering Provider/Ordering MD: Joycelyn Laguerre Date of Service: 01/06/21 Procedure(s): XR ankle LT min 3V* [id number] Accession Number(s): [id number] Report Number: [id number] PROCEDURE INFORMATION: Exam: XR Left Ankle Exam date and time: 01/06/2021 8:31 PM Age: 35 years old Clinical indication: Injury or trauma; Fall; Blunt trauma; Ankle; Left; Prior surgery; Surgery date: 6+ months; Additional info: Twisted ankle, left TECHNIQUE: Imaging protocol: XR Left ankle. Views: 3 or more views. COMPARISON: CR Foot 3 views, LEFT* [id number] 07/15/2015 5:02 PM FINDINGS: Bones/joints: Normal. Soft tissues: There is edema in the soft tissues surrounding the ankle. XR/XR ankle LT min 3V* [id number] IMPRESSION: There is edema in the soft tissues. Dictated By:Anahi Brannon MD Signed By:Anahi Brannon MDSigned Date/Time:01/06/212099 DD/ 57 Discharge Plan Discharge Patient Disposition: Home Clinical Impression: Left ankle sprain Qualifiers: Encounter type: initial encounter Involved ligament of ankle: posterior talofibular ligament Qualified Code(s): S93.492A - Sprain of other ligament of left ankle, initial encounter Condition: Stable Prescriptions: No Action omeprazole 20 mg Tablet,Delayed Release (Dr/Ec) 20 mg PO DAILY RF: 0 docusate sodium 100 mg Capsule 100 mg PO BID Qty: 60 RF: 0 Discharge Orders: Discharge ED (Routine); Ordered 01/06/21 Ordered By: Joycelyn Laguerre Referrals: Halima Villalta MD [Primary Care Provider] - Discharge Diet: Usual diet Discharge Activity: Limit activity as instructed Patient Instructions: Ankle Sprain (ED), Ankle Stirrup Splint (ED), Ankle Exercises (GEN) Activity Restrictions/Additional Instructions: Follow-up with your primary care provider in 7 to 10 days if left ankle is not improved Continue with ibuprofen/Tylenol [id number] as needed for pain Continue with cool compresses for the first 24 to 48 hours along with left ankle elevation to help with pain and swelling After 48 hours, may apply warm compresses with range of motion exercises to help with mobility and strengthening. Return to the emergency department if you develop worsening symptoms. Coding Level of Care Code ED Pick Up Man for Donna Melendez
[2021-01-06] MEDS: ibuprofen 600 mg Tablet PO (21:29)
[2021-01-06 21:36] VITALS: BP 162/90; PULSE 81; RESP 17; O2SAT 97
== END 2021-01-06 21:38 | disposition home or self-care (01) ==
PROVIDERS: Emergency Provider Nurse Practitioner Family; PCP Family Medicine
DX: S93.492A Sprain of other ligament of left ankle, initial encounter (principal); X50.1XXA Overexertion from prolonged static or awkward postures, initial encounter
CPT/HCPCS: 12345; 29515; 73610; 99281; 99283

== ENCOUNTER 2021-04-26 20:20 | Emergency (ER) | payer OTHER, BC, MEDICAID, SELFPAY ==
[2021-04-26 20:25] VITALS: BP 175/101; PULSE 96; RESP 18; TEMP 37.1; O2SAT 97; BMI 53.1
[2021-04-26 20:33] VITALS: BP 186/129; PULSE 96; O2SAT 97
--- NOTE | 2021-04-26 20:44 | ED_ITS ---
HPI - Nausea/Vomiting/Diarrhea General: Chief complaint: Nausea/Vomiting/Diarrhea Stated complaint: headache, n/v/d Time Seen by Provider: 04/26/21 20:31 Source: patient Mode of arrival: ambulatory Limitations: no limitations History of Present Illness: HPI Narrative: 36-year-old female states starting this morning she is feeling nauseous has had vomiting along with diarrhea. States she had 1 large episode of vomiting has been nauseous ever since. States she had abdominal pain earlier that was diffuse and cramping and at its worst was 7 out of 10. She currently pain-free. Has had no known sick contacts. Denies any fevers. She is also had a slight headache as well. Associated nausea: Yes Associated symtoms: Reports nausea; Denies chest pain, dysuria or headache(s) Review of Systems Const: Denies: fever(s), chills, body aches or change in appetite Eyes: Denies: blurry vision or eye discomfort ENMT: Denies: throat pain or dental pain Card: Denies: chest pain Resp: Denies: dyspnea GI: Reports: abdominal pain, nausea and vomiting : Denies: dysuria Musc: Denies: neck pain or back pain Skin/Breast: Denies: rash Neuro: Denies: headache(s) Psych: Denies: depression Bharat/Lymph: Denies: easy bruising All/Imm: Denies: urticaria PFSH ED PFSH: Medical History delivery due to maternal disorder Chronic hypertension affecting Gestational diabetes mellitus, diet-controlled Intrauterine Morbid obesity Family History Other Diabetes Hypertension Social History Smoking and tobacco status: never smoked Second hand smoke exposure: No Smoking risk assessment/counseling performed?: No Alcohol intake: unknown Desire information about alcohol rehabilitation?: No Counseling given: No Adopted: No Caregiver/support person: Yes Lives independently: Yes Household members: spouse, significant other and family Housing: House Marital status: Single Female Reproductive History: Date of last menstrual period: 04/17/21 Physical Exam Const: COMMON NORMALS: no acute distress, patient oriented x3 and healthy appearing HENMT: COMMON NORMALS: normocephalic and atraumatic HEAD & SCALP: normocephalic and atraumatic Eye: COMMON NORMALS: Equal, round and reactive pupils present and EOMs intact bilaterally PUPIL: Yes Equal, round and reactive pupils present Neck/C-Spine: COMMON NORMALS: full ROM and supple Chest: COMMONS NORMALS: normal inspection of the chest and normal palpation of entire chest wall Resp: COMMON NORMALS: normal respiratory effort, No retractions, No use of accessory muscles and clear to auscultation bilaterally AUSCULTATION: clear to auscultation bilaterally Cardio: COMMON NORMALS: regular rate, regular rhythm and No murmurs present (Cardio) RATE: regular rate RHYTHM: regular rhythm GI: COMMON NORMALS: Normal to inspection, nondistended, normoactive bowel sounds present, Soft to palpation, non-tender and no masses PALPATION: Yes Soft to palpation Extremity: COMMON NORMALS: normal to inspection and full ROM Neuro: COMMON NORMALS: patient oriented x3, moves all extremities and no focal motor deficits Psych: COMMON NORMALS: mental status grossly normal, Normal thought process present and cooperative THOUGHT PROCESS: Normal thought process present Skin: COMMON NORMALS: no rashes or lesions noted and no wounds GENERAL SKIN EXAM: no rashes or lesions noted Course Vital Signs: Vital signs: Vital Signs Temperature 98.8 F 04/26/21 20:25 Pulse Rate 95 04/26/21 22:15 Respiratory Rate 18 04/26/21 20:25 Blood Pressure 158/93 04/26/21 22:15 Pulse Oximetry 96 04/26/21 22:15 MDM - Nausea/Vomiting/Diarrhea MDM Narrative: Medical decision making narrative: Patient presents with vomiting that is likely viral in origin. She feels much improved after Reglan. Patient's blood work here is all normal. Abdominal exam is benign she has no signs of cholecystitis or appendicitis. Will prescribe Zofran she is stable for discharge she is follow-up PCP and return if worsening. Lab Data: Labs: Lab Results 04/26/21 04/26/21 04/26/21 Range/Units 20:40 20:40 20:50 WBC 7.8 (4.0-10.0) 10^3/ uL RBC 4.89 (4.1-5.3) 10^6/u L Hgb 12.8 (11.5-15.3) g/dL Hct 39.8 (37.0-47.0) % MCV 81.4 (81-99) fL MCH 26.2 L (28.0-34.0) pg MCHC 32.2 (30.0-36.0) g/dL RDW 14.5 (12.1-15.1) % Plt Count 272 (130-400) 10^3/c mm MPV 10.6 H (7.4-10.4) fL Neut % (Auto) 72.7 % Lymph % (Auto) 17.5 % [place] % (Auto) 8.6 % Eos % (Auto) 0.3 % Baso % (Auto) 0.6 % Neut # (Auto) 5.65 (1.8-7.7) 10^3/u L Lymph # (Auto) 1.4 (0.8-4.8) 10^3/u L [place] # (Auto) 0.7 (0.2-0.9) 10^3/u L Eos # (Auto) 0.0 (0.0-0.8) 10^3/u L Baso # (Auto) 0.1 (0.0-0.1) 10^3/u L Nucleated RBC % (a uto) 0 % Nucleated RBCs # 0.0 /100WBC Sodium 137 (136-145) mmol/L Potassium 4.1 (3.5-5.1) mmol/L Chloride 100 (98-107) mmol/L Carbon Dioxide 23 (22-29) mmol/L Anion Gap 18.1 (5-19) BUN 6 (6-20) mg/dL Creatinine 0.4 L (0.5-0.9) mg/dL GFR Calculation 180.6 H (90-130) mL/min Glucose 94 (65-115) mg/dL Calculated Osmolal ity 281 L (285-295) mOsm/k g Calcium 8.9 (8.5-10.5) mg/dL Total Bilirubin 0.4 (0.15-1.2) mg/dL AST 35 H (0-32) U/L ALT 40 H (0-33) U/L Alkaline Phosphata se 102 (35-105) IU/L Total Protein 7.2 (6.6-8.7) g/dL Albumin 4.3 (3.5-5.2) g/dL Globulin 2.9 (1.3-4.6) g/dL Lipase 15 (13-60) U/L HCG, Qual Negative (Negative) Urine Color (Yellow) Urine Appearance (CLEAR) Urine pH (5-7) Ur Specific Gravit y (1.005-1.030) Urine Protein (Negative) Urine Glucose (UA) (Normal) Urine Ketones (Negative) Urine Blood (Negative) Urine Nitrate (Negative) Urine Bilirubin (Negative) Urine Urobilinogen (Negative) mg/dL Ur Leukocyte Maria Dolores ase (Negative) 04/26/21 Range/Units 20:50 WBC (4.0-10.0) 10^3/ uL RBC (4.1-5.3) 10^6/u L Hgb (11.5-15.3) g/dL Hct (37.0-47.0) % MCV (81-99) fL MCH (28.0-34.0) pg MCHC (30.0-36.0) g/dL RDW (12.1-15.1) % Plt Count (130-400) 10^3/c mm MPV (7.4-10.4) fL Neut % (Auto) % Lymph % (Auto) % [place] % (Auto) % Eos % (Auto) % Baso % (Auto) % Neut # (Auto) (1.8-7.7) 10^3/u L Lymph # (Auto) (0.8-4.8) 10^3/u L [place] # (Auto) (0.2-0.9) 10^3/u L Eos # (Auto) (0.0-0.8) 10^3/u L Baso # (Auto) (0.0-0.1) 10^3/u L Nucleated RBC % (a uto) % Nucleated RBCs # /100WBC Sodium (136-145) mmol/L Potassium (3.5-5.1) mmol/L Chloride (98-107) mmol/L Carbon Dioxide (22-29) mmol/L Anion Gap (5-19) BUN (6-20) mg/dL Creatinine (0.5-0.9) mg/dL GFR Calculation (90-130) mL/min Glucose (65-115) mg/dL Calculated Osmolal ity (285-295) mOsm/k g Calcium (8.5-10.5) mg/dL Total Bilirubin (0.15-1.2) mg/dL AST (0-32) U/L ALT (0-33) U/L Alkaline Phosphata se (35-105) IU/L Total Protein (6.6-8.7) g/dL Albumin (3.5-5.2) g/dL Globulin (1.3-4.6) g/dL Lipase (13-60) U/L HCG, Qual (Negative) Urine Color Yellow (Yellow) Urine Appearance Clear (CLEAR) Urine pH 7 (5-7) Ur Specific Gravit y 1.000 L (1.005-1.030) Urine Protein Neg (Negative) Urine Glucose (UA) Norm (Normal) Urine Ketones Negative (Negative) Urine Blood Neg (Negative) Urine Nitrate Negative (Negative) Urine Bilirubin Neg (Negative) Urine Urobilinogen Norm (Negative) mg/dL Ur Leukocyte Maria Dolores ase Negative (Negative) Discharge Plan Discharge Patient Disposition: Home Clinical Impression: Vomiting Qualifiers: Vomiting type: unspecified Vomiting Intractability: non-intractable Nausea presence: with nausea Qualified Code(s): R11.2 - Nausea with vomiting, unspecified Condition: Stable Prescriptions: New ondansetron 4 mg tablet,disintegrating 4 mg PO Q6H PRN (Reason: nausea and vomiting) Qty: 14 RF: 0 No Action omeprazole 20 mg Tablet,Delayed Release (Dr/Ec) 20 mg PO DAILY RF: 0 docusate sodium 100 mg Capsule 100 mg PO BID Qty: 60 RF: 0 Discharge Orders: Discharge ED (Routine); Ordered 04/26/21 Ordered By: Carlos Lui Referrals: Halima Villalta MD [Primary Care Provider] - 1-3 days Discharge Diet: Advance as tolerated Discharge Activity: Resume usual activity Patient Instructions: Acute Nausea and Vomiting (ED) Coding Level of Care Code ED Aeronautics Teacher for Chg Fwd Exam Comprehensive
[2021-04-26 20:50] LABS: Basophils # 0.1 10^3/uL (0.0-0.1); Basophils % 0.6 %; Eosinophils % 0.3 %; Hematocrit 39.8 % (37.0-47.0); Hemoglobin 12.8 g/dL (11.5-15.3); Lymphocytes # 1.4 10^3/uL (0.8-4.8); Lymphocytes % 17.5 %; Mean Corpuscular HGB Conc 32.2 g/dL (30.0-36.0); Mean Corpuscular Hemoglobin 26.2 pg (28.0-34.0); Mean Corpuscular Volume 81.4 fL (81-99); Mean Platelet Volume 10.6 fL (7.4-10.4); Monocytes # 0.7 10^3/uL (0.2-0.9); Monocytes % 8.6 %; Neutrophils # 5.65 10^3/uL (1.8-7.7); Neutrophils % 72.7 %; Nucleated Red Blood Cells % 0 %; Platelet Count 272 10^3/cmm (130-400); Red Blood Count 4.89 10^6/uL (4.1-5.3); Red Cell Distribution Width 14.5 % (12.1-15.1); White Blood Count 7.8 10^3/uL (4.0-10.0)
[2021-04-26] MEDS: metoclopramide 5 mg/mL SDV 2 mL 10 MG IVP (20:51)
[2021-04-26] MEDS: sodium chloride 0.9% 1,000 ML 999 ML IV (20:51)
[2021-04-26] MEDS: diphenhydrAMINE 50 mg/mL SDV 1mL IVP (20:51)
[2021-04-26 21:02] LABS: HCG Qualitative Urine. Negative (Negative)
[2021-04-26 21:10] LABS: Alanine Aminotransferase 40 U/L (0-33); Albumin Level 4.3 g/dL (3.5-5.2); Alkaline Phosphatase 102 IU/L (35-105); Anion Gap 18.1 (5-19); Aspartate Amino Transferase 35 U/L (0-32); Blood Urea Nitrogen 6 mg/dL (6-20); Calcium 8.9 mg/dL (8.5-10.5); Carbon Dioxide 23 mmol/L (22-29); Chloride 100 mmol/L (98-107); Globulin 2.9 g/dL (1.3-4.6); Glomerular Filtration Rate 180.6 mL/min (90-130); Glucose 94 mg/dL (65-115); Lipase 15 U/L (13-60); Osmolality Calculated 281 mOsm/kg (285-295); Potassium 4.1 mmol/L (3.5-5.1); Sodium 137 mmol/L (136-145); Total Bilirubin 0.4 mg/dL (0.15-1.2); Total Protein 7.2 g/dL (6.6-8.7)
[2021-04-26 21:48] LABS: Add Urine Microscopic? NO; Charge for UA Resulting for Rev
[2021-04-26 21:51] LABS: Bilirubin Urine Neg (Negative); Blood Urine Neg (Negative); Glucose Urine UA Norm (Normal); Ketones Urine Negative (Negative); Leukocyte Esterase Urine Negative (Negative); Nitrate Urine Negative (Negative); Protein Urine Neg (Negative); Urine Appearance Clear (CLEAR); Urine Color Yellow (Yellow); Urobilinogen Urine Norm (Negative); pH Urine 7 (5-7)
[2021-04-26 22:15] VITALS: BP 158/93; PULSE 91; PULSE 95; O2SAT 96
[2021-04-26] MEDS: ondansetron 4 MG Tablet PO (22:15)
== END 2021-04-26 22:18 | disposition home or self-care (01) ==
PROVIDERS: Emergency Provider Emergency Medicine; PCP Family Medicine
DX: R11.2 Nausea with vomiting, unspecified (principal)
CPT/HCPCS: 80053; 81003; 81025; 83690; 85025; 96361; 96374; 96375; 99284; J1200; J2765; J7030; Q0162

== ENCOUNTER 2021-12-02 15:12 | Emergency (ER) | payer OTHER, BC, MEDICAID, SELFPAY ==
[2021-12-02 15:24] VITALS: BP 165/99; PULSE 62; RESP 18; TEMP 36.6; O2SAT 98; BMI 52.0
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
[2021-12-02 17:06] VITALS: BP 163/92; PULSE 60; RESP 18; TEMP 36.5; O2SAT 98
== END 2021-12-02 17:07 | disposition home or self-care (01) ==
PROVIDERS: Emergency Provider Physician Assistant; PCP Family Medicine
DX: S00.93XA Contusion of unspecified part of head, initial encounter (principal); R93.0 Abnormal findings on diagnostic imaging of skull and head, not elsewhere classified; V89.2XXA Person injured in unspecified motor-vehicle accident, traffic, initial encounter
CPT/HCPCS: 70450; 99282

== ENCOUNTER 2022-01-16 13:09 | Outpatient (CLI) | payer OTHER, BC, MEDICAID, SELFPAY ==
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
== END 2022-01-16 13:10 | disposition home or self-care (01) ==
LOC: RAD 13:12
PROVIDERS: PCP Family Medicine; Visit Provider Family Medicine
DX: R90.89 Other abnormal findings on diagnostic imaging of central nervous system (principal); Q75.0 Craniosynostosis; V89.2XXA Person injured in unspecified motor-vehicle accident, traffic, initial encounter
CPT/HCPCS: 70551

== ENCOUNTER → 2022-05-24 08:24 | Outpatient (BNVA) | payer OTHER, BC, MEDICAID, SELFPAY | PROVIDERS: PCP Family Medicine; Referring Provider Family Medicine; Visit Provider Internal Medicine | DX: R79.82 Elevated C-reactive protein (CRP) (principal); R90.89 Other abnormal findings on diagnostic imaging of central nervous system; R20.0 Anesthesia of skin; Z11.59 Encounter for screening for other viral diseases; M54.9 Dorsalgia, unspecified | CPT/HCPCS: 36415; 73120; 81003; 82550; 82607; 83516; 83735; 84155; 84165; 84425; 84443; 85651; 86036; 86140; 86160; 86162; 86200; 86235; 86255; 86376; 86704; 86803; 87340; 99214 ==

== ENCOUNTER → 2022-05-31 10:59 | Outpatient (BNVA) | payer OTHER, BC, MEDICAID, SELFPAY | PROVIDERS: PCP Family Medicine; Visit Provider Internal Medicine | DX: R79.82 Elevated C-reactive protein (CRP) (principal); R90.89 Other abnormal findings on diagnostic imaging of central nervous system; M54.9 Dorsalgia, unspecified; Z68.43 Body mass index [BMI] 50.0-59.9, adult | CPT/HCPCS: 99214 ==

== ENCOUNTER 2022-06-24 12:34 | Outpatient (CLI) | payer OTHER, BC, MEDICAID, SELFPAY ==
[2022-06-24 13:49] LABS: Basophils % 0.4 %; Eosinophils # 0.1 10^3/uL (0.0-0.8); Hematocrit 37.9 % (37.0-47.0); Hemoglobin 11.9 g/dL (11.5-15.3); Lymphocytes # 2.5 10^3/uL (0.8-4.8); Lymphocytes % 32.4 %; Mean Corpuscular HGB Conc 31.4 g/dL (30.0-36.0); Mean Corpuscular Hemoglobin 27.2 pg (28.0-34.0); Mean Corpuscular Volume 86.5 fl (81-99); Mean Platelet Volume 10.6 fL (7.4-10.4); Monocytes # 0.5 10^3/uL (0.2-0.9); Monocytes % 6.3 %; Neutrophils # 4.63 10^3/uL (1.8-7.7); Neutrophils % 59.5 %; Nucleated Red Blood Cells % 0 %; Platelet Count 302 10^3/cmm (130-400); Red Blood Count 4.38 10^6/uL (4.1-5.3); Red Cell Distribution Width 13.3 % (12.1-15.1); White Blood Count 7.8 10^3/uL (4.0-10.0)
[2022-06-24 13:57] LABS: Erythrocyte Sedimentation Rate 50 mm/hr (0-15)
[2022-06-24 14:25] LABS: Alanine Aminotransferase 23 U/L (0-33); Albumin Level 3.9 g/dL (3.5-5.2); Alkaline Phosphatase 87 IU/L (35-105); Aspartate Amino Transferase 25 U/L (0-32); Blood Urea Nitrogen 8 mg/dL (6-20); Calcium 8.8 mg/dL (8.5-10.5); Carbon Dioxide 26 mmol/L (22-29); Chloride 100 mmol/L (98-107); Ferritin 35 ng/mL (15-150); Glomerular Filtration Rate 179.6 mL/min (90-130); Glucose 114 mg/dL (65-115); Iron 46 ug/dL (37-145); Osmolality Calculated 283 mOsm/kg (285-295); Sodium 137 mmol/L (136-145); Total Bilirubin 0.2 mg/dL (0.15-1.2); Total Protein 6.9 g/dL (6.6-8.7)
[2022-06-24 14:37] LABS: Anion Gap 15.1 (5-19); Potassium 4.1 mmol/L (3.5-5.1)
[2022-06-26 16:08] LABS: Immunoglobulin A 179 mg/dL (47-310)
[2022-06-27 03:22] LABS: Gliadin Ab.IgA 1.9 U/mL; Gliadin Ab.IgG <1.0 U/mL; Tissue Transglutaminase IgA Ab <1.0 U/mL; Tissue transglutaminase Ab.IgG <1.0 U/mL
[2023-08-14 13:26] LABS: Miscellaneous Test See Scanned Lab Rpt
== END 2022-06-24 12:35 | disposition home or self-care (01) ==
LOC: LAB 12:43
PROVIDERS: PCP Family Medicine; Visit Provider Internal Medicine
DX: M54.9 Dorsalgia, unspecified (principal); R79.82 Elevated C-reactive protein (CRP); R90.89 Other abnormal findings on diagnostic imaging of central nervous system
CPT/HCPCS: 36415; 80053; 82728; 82784; 83516; 83540; 85025; 85651

== ENCOUNTER → 2022-07-12 08:51 | Outpatient (BNVA) | payer OTHER, BC, MEDICAID, SELFPAY | PROVIDERS: PCP Family Medicine; Visit Provider Internal Medicine | DX: M19.90 Unspecified osteoarthritis, unspecified site (principal); R79.82 Elevated C-reactive protein (CRP); R77.8 Other specified abnormalities of plasma proteins | CPT/HCPCS: 99214 ==

== ENCOUNTER 2022-07-25 07:30 | Oncology outpatient (recurring) (ONCR) | payer OTHER, BC, MEDICAID, SELFPAY ==
[2022-07-25 09:39] LABS: Basophils # 0.1 10^3/uL (0.0-0.1); Basophils % 0.5 %; Eosinophils # 0.1 10^3/uL (0.0-0.8); Eosinophils % 0.5 %; Hematocrit 43.1 % (37.0-47.0); Lymphocytes # 2.8 10^3/uL (0.8-4.8); Lymphocytes % 25.7 %; Mean Corpuscular HGB Conc 30.2 g/dL (30.0-36.0); Mean Corpuscular Hemoglobin 27.1 pg (28.0-34.0); Mean Corpuscular Volume 89.8 fl (81-99); Mean Platelet Volume 10.9 fL (7.4-10.4); Monocytes # 0.8 10^3/uL (0.2-0.9); Monocytes % 7.1 %; Neutrophils # 7.13 10^3/uL (1.8-7.7); Neutrophils % 65.9 %; Nucleated Red Blood Cells % 0 %; Platelet Count 311 10^3/cmm (130-400); Red Cell Distribution Width 13.6 % (12.1-15.1); White Blood Count 10.8 10^3/uL (4.0-10.0)
[2022-07-25 10:06] LABS: Albumin Level 3.8 g/dL (3.5-5.2); Alkaline Phosphatase 86 U/L (35-105); Blood Urea Nitrogen 13 mg/dL (6-20); Calcium 9.3 mg/dL (8.5-10.5); Carbon Dioxide 23 mmol/L (22-29); Chloride 100 mmol/L (98-107); Globulin 3.3 g/dL (1.3-4.6); Glomerular Filtration Rate 179.6 mL/min (90-130); Glucose 111 mg/dL (65-115); Osmolality Calculated 285 mOsm/kg (285-295); Sodium 137 mmol/L (136-145); Total Bilirubin 0.2 mg/dL (0.15-1.2); Total Protein 7.1 g/dL (6.6-8.7)
[2022-07-25 10:07] LABS: Alanine Aminotransferase 36 U/L (0-33); Anion Gap 18.8 (5-19); Aspartate Amino Transferase 33 U/L (0-32); Potassium 4.8 mmol/L (3.5-5.1)
[2022-07-25 10:32] LABS: LAB Peripheral Smear Sent for Review
[2022-07-25 11:11] LABS: Immunoglobulin IGA 184 mg/dL (70-400); Immunoglobulin IGG 833 mg/dL (700-1600); Immunoglobulin IGM 130 mg/dL (40-230)
[2022-07-26 06:57] LABS: PROTEIN, TOTAL 7.2 g/dL (6.1-8.1)
[2022-07-26 16:18] LABS: ALBUMIN 3.8 g/dL (3.8-4.8); ALPHA 1 GLOBULIN 0.4 g/dL (0.2-0.3); ALPHA 2 GLOBULIN 1.1 g/dL (0.5-0.9); BETA 1 GLOBULIN 0.6 g/dL (0.4-0.6); BETA 2 GLOBULIN 0.4 g/dL (0.2-0.5)
== END 2022-07-31 23:59 | disposition home or self-care (01) ==
PROVIDERS: PCP Family Medicine; Visit Provider Internal Medicine Medical Oncology
DX: R70.0 Elevated erythrocyte sedimentation rate (principal)
CPT/HCPCS: 36415; 80053; 82784; 84155; 84165; 85025; 86334; 87040; 99204

== ENCOUNTER 2022-08-01 20:00 | Outpatient (CLI) | payer OTHER, BC, MEDICAID, SELFPAY | END 2022-08-01 20:01 | disposition home or self-care (01) | LOC: SLEEP 08-02 06:54 | PROVIDERS: PCP Family Medicine; Visit Provider Family Medicine | DX: G47.33 Obstructive sleep apnea (adult) (pediatric) (principal) | CPT/HCPCS: 95810 ==

== ENCOUNTER → 2023-05-08 12:41 | Outpatient (BNVA) | payer OTHER, BC, MEDICAID, SELFPAY | PROVIDERS: PCP Family Medicine; Visit Provider Registered Nurse Neonatal Intensive Care | DX: J02.9 Acute pharyngitis, unspecified (principal); J02.0 Streptococcal pharyngitis | CPT/HCPCS: 87880 ==

== ENCOUNTER → 2023-09-23 18:12 | Outpatient (BNVA) | payer OTHER, BC, MEDICAID, SELFPAY | PROVIDERS: PCP Family Medicine; Visit Provider Nurse Practitioner | DX: U07.1 COVID-19 (principal) | CPT/HCPCS: 87426 ==

== ENCOUNTER 2023-11-12 09:03 | Outpatient (CLI) | payer OTHER, BC, MEDICAID, SELFPAY ==
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
== END 2023-11-12 09:04 | disposition home or self-care (01) ==
LOC: RAD 09:03
PROVIDERS: PCP Family Medicine; Visit Provider Family Medicine
DX: Z12.31 Encounter for screening mammogram for malignant neoplasm of breast (principal)
CPT/HCPCS: 77063; 77067

== ENCOUNTER 2024-02-20 18:59 | Emergency (ER) | payer OTHER, BC, MEDICAID, SELFPAY ==
[2024-02-20 19:02] VITALS: BP 148/72; PULSE 57; RESP 18; TEMP 36.6; O2SAT 98; BMI 55.3
== END 2024-02-20 20:50 | disposition left against medical advice (07) ==
LOC: ER 19:08
PROVIDERS: Emergency Provider Family Medicine; PCP Family Medicine
DX: Z53.21 Procedure and treatment not carried out due to patient leaving prior to being seen by health care provider (principal)

== ENCOUNTER 2024-04-30 12:45 | Outpatient (CLI) | payer OTHER, BC, MEDICAID, SELFPAY ==
--- NOTE | 2024-04-30 12:53 | XR_ITS ---
WS: [id number] Exam: XR hip LT 2-3V wo/w pel* [id number] Date/Time of Exam: 04/30/2024 1:01 PM Reason For Exam: left hip pain Findings: No fractures or bone anomalies are noted. No unusual soft tissue masses or calcifications are seen. The bony elements of the hip are in adequate alignment. XR/XR hip LT 2-3V wo/w pel* [id number] IMPRESSION: Negative LEFT hip. Tonnis classification: 0
== END 2024-04-30 12:46 | disposition home or self-care (01) ==
LOC: RAD 12:46
PROVIDERS: PCP Family Medicine; Visit Provider Emergency Medicine
DX: M25.552 Pain in left hip (principal)
CPT/HCPCS: 73502

== ENCOUNTER 2024-08-21 14:31 | Outpatient (CLI) | payer OTHER, BC, MEDICAID, SELFPAY ==
--- NOTE | 2024-08-21 14:43 | XRR_ITS ---
PROCEDURE INFORMATION: Exam: XR Left Foot Exam date and time: 08/21/2024 2:44 PM Age: 39 years old Clinical indication: Left; Prior surgery; Surgery date: 6+ months; Surgery type: Lt foot fixation x 10yrs ago; Patient HX: Lt lateral foot pain; No known injury; Previous fixation surg x 10+ yrs ago; Additional info: Lt foot injury; Lt lateral foot pain; Previous FX TECHNIQUE: Imaging protocol: Radiologic exam of the left foot. Views: 3 or more views. COMPARISON: CR XR ankle LT min 3V* [id number] 01/06/2021 8:35 PM FINDINGS: Bones/joints: Screw fixation of the 5th metatarsal without any evidence of hardware failure or loosening. No acute fracture. Soft tissues: Normal. XR/XR foot LT min 3V* [id number] IMPRESSION: No acute fracture or subluxation.
== END 2024-08-21 14:32 | disposition home or self-care (01) ==
PROVIDERS: PCP Family Medicine; Visit Provider Emergency Medicine
DX: S99.922A Unspecified injury of left foot, initial encounter (principal); Z96.7 Presence of other bone and tendon implants; X58.XXXA Exposure to other specified factors, initial encounter
CPT/HCPCS: 73630

== ENCOUNTER → 2024-09-20 13:14 | Outpatient (BNVA) | payer OTHER, BC, MEDICAID, SELFPAY | PROVIDERS: PCP Family Medicine; Visit Provider Podiatrist Foot & Ankle Surgery | DX: M79.672 Pain in left foot (principal); M25.372 Other instability, left ankle; M77.42 Metatarsalgia, left foot | CPT/HCPCS: 73630; 99203 ==

== ENCOUNTER 2025-02-16 08:55 | Outpatient (CLI) | payer OTHER, BC, MEDICAID, SELFPAY ==
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
== END 2025-02-16 08:56 | disposition home or self-care (01) ==
PROVIDERS: PCP Family Medicine; Visit Provider Family Medicine
DX: Z12.31 Encounter for screening mammogram for malignant neoplasm of breast (principal); R92.313 Mammographic fatty tissue density, bilateral breasts; R59.0 Localized enlarged lymph nodes; R92.1 Mammographic calcification found on diagnostic imaging of breast
CPT/HCPCS: 77063; 77067

== ENCOUNTER → 2025-02-21 13:12 | Outpatient (BNVA) | payer OTHER, BC, MEDICAID, SELFPAY | PROVIDERS: PCP Family Medicine; Visit Provider Family Medicine | DX: S96.912A Strain of unspecified muscle and tendon at ankle and foot level, left foot, initial encounter (principal); X58.XXXA Exposure to other specified factors, initial encounter | CPT/HCPCS: 73610 ==

== ENCOUNTER → 2025-05-27 10:25 | Outpatient (BNVA) | payer BC, MEDICAID, SELFPAY | PROVIDERS: PCP Family Medicine; Visit Provider Emergency Medicine | DX: S69.92XA Unspecified injury of left wrist, hand and finger(s), initial encounter (principal); X58.XXXA Exposure to other specified factors, initial encounter | CPT/HCPCS: 73110 ==